=== PATIENT | male | born 1980 ===

== ENCOUNTER 2016-09-05 14:11 | Emergency (ER) | payer OTHER ==
[2016-09-05 14:18] VITALS: BP 134/77; PULSE 80; RESP 16; TEMP 98.9; O2SAT 100
[2016-09-05 14:19] VITALS: BMI 27.4
[2016-09-05] MEDS ORDERED: Sodium Chloride 0.9% 1,000 ML IV STA (14:27)
--- NOTE | 2016-09-05 14:35 | ED PDOC ---
HPI: Back Time Seen by Provider: 09/05/16 14:21 Chief Complaint (Nursing): Back Pain Chief Complaint (Provider): Back Pain History Per: Patient History/Exam Limitations: no limitations Onset/Duration Of Symptoms: Days (x3 days) Current Symptoms Are (Timing): Still Present Additional Complaint(s): 36 y/o male presents to the emergency department with a complaint of a right- sided back pain that radiates to right upper abdomen x3 days. He reports taking ibuprofen with mild relief of pain; last dose at 11 a.m. Denies nausea, vomiting, diarrhea or constipation. Patient has no history of similar symptoms. Patient denies any trauma or injury. PMD: [facility] Past Medical History Reviewed: Historical Data, Nursing Documentation, Vital Signs Vital Signs: Last Vital Signs Temp 98.9 F 09/05/16 14:17 Pulse 80 09/05/16 14:17 Resp 16 09/05/16 14:17 BP 134/77 09/05/16 14:17 Pulse Ox 100 09/05/16 14:17 - Medical History PMH: No Chronic Diseases - Surgical History Surgical History: No Surg Hx - Family History Family History: States: No Known Family Hx - Living Arrangements Living Arrangements: With Family - Social History Current smoker - smoking cessation education provided: No Alcohol: None Drugs: Denies - Home Medications Home Medications: Ambulatory Orders Medication Instructions Recorded Naproxen [Naprosyn] 500 mg PO BID #30 tab 12/26/12 Ibuprofen [Motrin] 600 mg PO Q6 PRN #15 tab 09/05/16 - Allergies Allergies/Adverse Reactions: Allergies Allergy/AdvReac Type Severity Reaction Status Date / Time No Known Allergies Allergy Verified 09/05/16 14:17 Review of Systems ROS Statement: Except As Marked, All Systems Reviewed And Found Negative Constitutional: Negative for: Fever Gastrointestinal: Positive for: Abdominal Pain. Negative for: Nausea, Vomiting , Constipation, Other (Pain after eating) Musculoskeletal: Positive for: Back Pain Physical Exam - Reviewed Nursing Documentation Reviewed: Yes Vital Signs Reviewed: Yes - Physical Exam Appears: Positive for: Non-toxic, No Acute Distress Head Exam: Positive for: ATRAUMATIC, NORMOCEPHALIC Skin: Positive for: Normal Color, Warm, Dry Neck: Positive for: Normal, Supple Cardiovascular/Chest: Positive for: Regular Rate, Rhythm. Negative for: Murmur Respiratory: Positive for: Normal Breath Sounds. Negative for: Accessory Muscle Use, Respiratory Distress Gastrointestinal/Abdominal: Positive for: Soft, Tenderness (Slight tenderness of the RUQ and epigastric region.). Negative for: Distended, Guarding, Rebound Back: Positive for: Other (Mild tenderness of the right parathoracic region, no midline tenderness) Extremity: Positive for: Normal ROM Neurologic/Psych: Positive for: Alert, Oriented - Laboratory Results Result Diagrams: 09/05/16 14:40 09/05/16 14:40 Urine dip results: Negative for: Leukocyte Esterase, Blood, Nitrate, Ketones, Glucose, Bilirubin, Protein - ECG Interpretation Of ECG: NSR 62 bpm, no acute finding, reviewed by PA and ED attending. O2 Sat by Pulse Oximetry: 100 (RA) Pulse Ox Interpretation: Normal - Other Rad Abd US X-Ray: Read By Radiologist X-Ray Interpretation: see below CXR X-Ray: Interpreted by Me, Viewed By Me X-Ray Interpretation: no acute finding CT abd and pelvis with IV contrast X-Ray: Read By Radiologist X-Ray Interpretation: see below Medical Decision Making Medical Decision Making: Time: 14:21 Initial plan: --COMP Metabolic Panel --CBC w/ differential --Abdomen Complete US Electrocardiogram Stat Lipase Stat ED Urine Dipstick EKG-ED (EDUNRTX) CBC w/ differential Chest Two Views (PA/LAT) (RAD) Sodium Chloride 1,000 ml IV 1,000 mls/hr --Revaluation Time: 15:53 Abdomen Ultrasound FINDINGS: LIVER: Measures 15.0 cm. Normal echogenicity of the liver parenchyma. Echogenic mass right lobe of liver, 2.1 x 1.6 x 2.5 cm. No prior ultrasound for comparison. This is not evident on prior noncontrast CT examination of 03/15/2011. Possible hemangioma but nonspecific. Recommend further evaluation with contrast-enhanced CT of the abdomen utilizing hemangioma protocol. GALLBLADDER: Two polyps, 3 mm and 4 mm. No evidence of cholelithiasis. No mural thickening or pericholecystic fluid. Negative sonographic Hicks sign. COMMON BILE DUCT: Measures 3 mm. No stones. No dilatation. PANCREAS: Limited. No mass or peripancreatic fluid appreciated. RIGHT KIDNEY: Measures 11.2cm. Normal echogenicity. No calculus, mass, or hydronephrosis. LEFT KIDNEY: Measures 12.1cm. Normal echogenicity. No calculus, mass, or hydronephrosis. SPLEEN: Normal in size and contour. No mass. AORTA: No aneurysmal dilatation. IVC: Unremarkable. OTHER FINDINGS: None. IMPRESSION : 2.5 cm ovoid echogenic mass in right lobe of liver. Possible hemangioma but nonspecific. Recommend further evaluation with contrast-enhanced CT of the abdomen utilizing hemangioma protocol. Small gallbladder polyps. No evidence of cholelithiasis or cholecystitis. No additional abnormality. Case was d/w Dr. Tapia, CT abd and pelvis with IV and oral contrast ordered as per US findings above. CT: IMPRESSION: Three enhancing hepatic masses. The largest mass in the posterior medial right hepatic lobe, likely corresponds to echogenic mass identified on ultrasound examination of this same date. Evaluation of these 3 hepatic masses with multiphasic contrast enhanced computed tomography is advised. This should utilize the hemangioma protocol. Incidentally noted is a right inguinal hernia containing only mesenteric fat. Above results were d/w Dr. Tapia. Patient will be referred to clinic for follow up. Call was placed to family practice resident who is unable to make appt to for patient in clinic as it is currently after hours. Patient states he applied for [facility] and will call in AM to make appt with clinic. Copies of labs and Ct report provided to patient. Rx given for mario Bazan Attestation: Documented by Phuong Alexander, acting as a scribe for Lottie Mack PA-C. Provider Scribe Attestation: All medical record entries made by the Scribe were at my direction and personally dictated by me. I have reviewed the chart and agree that the record accurately reflects my personal performance of the history, physical exam, medical decision making, and the department course for this patient. I have also personally directed, reviewed, and agree with the discharge instructions and disposition. Disposition - Clinical Impression Clinical Impression: Liver mass, Back pain, Abdominal pain - Patient ED Disposition Is Patient to be Admitted: No Counseled Patient/Family Regarding: Studies Performed, Diagnosis, Need For Followup, Rx Given - Disposition Referrals: [facility] [Outside] Disposition: Routine/Home Disposition Time: 18:22 Condition: STABLE Additional Instructions: Take rx meds as directed as needed for pain. Call clinic in the morning to arrange for follow up appointment. Prescriptions: Ibuprofen [Motrin] 600 mg PO Q6 PRN #15 tab PRN Reason: Pain, Moderate (4-7) Instructions: Abdominal Pain (ED), Back Pain (ED) Results - Lab Results Lab Results: 09/05/16 09/05/16 14:40 14:40 WBC 8.5 RBC 4.64 Hgb 14.0 Hct 42.8 MCV 92.2 MCH 30.1 MCHC 32.7 L RDW 13.0 Plt Count 188 MPV 10.2 Neut % (Auto) 59.0 Lymph % (Auto) 29.8 Granite % (Auto) 9.9 Eos % (Auto) 0.7 Baso % (Auto) 0.6 Neut # 5.0 Lymph # 2.5 Granite # 0.8 Eos # 0.1 Baso # 0.0 Sodium 140 Potassium 3.8 Chloride 100 Carbon Dioxide 28 Anion Gap 15 BUN 18 Creatinine 0.7 L Est GFR ( Amer) > 60 Est GFR (Non-Af Amer) > 60 Random Glucose 99 Calcium 9.3 Total Bilirubin 0.5 AST 20 ALT 27 Alkaline Phosphatase 82 Total Protein 8.1 Albumin 4.3 Globulin 3.9 Albumin/Globulin Ratio 1.1 Lipase 186
[2016-09-05 15:35] LABS: BASO % 0.6 % (0.0-2.0); EOS # 0.1 K/uL (0.0-0.7); EOS % 0.7 % (0.0-4.0); HEMATOCRIT 42.8 % (35.0-51.0); LYMPH # 2.5 K/uL (1.0-4.3); LYMPH % 29.8 % (20.0-40.0); MEAN CELL VOLUME 92.2 fl (80.0-94.0); MEAN CORPUSCULAR HEMOGLOBIN 30.1 pg (27.0-31.0); MEAN CORPUSCULAR HGB CONC 32.7 g/dL (33.0-37.0); MEAN PLATELET VOLUME 10.2 fl (7.2-11.7); MONO # 0.8 K/uL (0.0-0.8); MONO % 9.9 % (0.0-10.0); NRBC % 0.1 % (0.0-0.0); WHITE BLOOD COUNT 8.5 K/uL (4.8-10.8)
[2016-09-05 15:39] LABS: ALB/GLOB RATIO 1.1 (1.0-2.1); ALKALINE PHOSPHATASE 82 U/L (38-126); ALT/SGPT 27 U/L (21-72); AST/SGOT 20 U/L (17-59); BILIRUBIN,TOTAL 0.5 mg/dl (0.2-1.3); BLOOD UREA NITROGEN 18 mg/dl (9-20); CALCIUM 9.3 mg/dL (8.4-10.2); CARBON DIOXIDE 28 mmol/L (22-30); CHLORIDE 100 mmol/L (98-107); GFR AFRICAN-AMERICAN > 60; GLUCOSE,RANDOM 99 mg/dL (75-110); LIPASE 186 U/L (23-300); POTASSIUM 3.8 MMOL/L (3.6-5.0); SODIUM 140 mmol/l (132-148); TOTAL PROTEIN 8.1 G/DL (6.3-8.2)
--- NOTE | 2016-09-05 15:55 | US ---
HISTORY: epigastric, RUQ abd pain COMPARISON: None. TECHNIQUE: Sonographic evaluation of the abdomen. FINDINGS: LIVER: Measures 15.0 cm. Normal echogenicity of the liver parenchyma. Echogenic mass right lobe of liver, 2.1 x 1.6 x 2.5 cm. No prior ultrasound for comparison. This is not evident on prior noncontrast CT examination of 03/15/2011. Possible hemangioma but nonspecific. Recommend further evaluation with contrast-enhanced CT of the abdomen utilizing hemangioma protocol. GALLBLADDER: Two polyps, 3 mm and 4 mm. No evidence of cholelithiasis. No mural thickening or pericholecystic fluid. Negative sonographic Hicks sign. COMMON BILE DUCT: Measures 3 mm. No stones. No dilatation. PANCREAS: Limited. No mass or peripancreatic fluid appreciated. RIGHT KIDNEY: Measures 11.2cm. Normal echogenicity. No calculus, mass, or hydronephrosis. LEFT KIDNEY: Measures 12.1cm. Normal echogenicity. No calculus, mass, or hydronephrosis. SPLEEN: Normal in size and contour. No mass. AORTA: No aneurysmal dilatation. IVC: Unremarkable. OTHER FINDINGS: None. IMPRESSION: 2.5 cm ovoid echogenic mass in right lobe of liver. Possible hemangioma but nonspecific. Recommend further evaluation with contrast-enhanced CT of the abdomen utilizing hemangioma protocol. Small gallbladder polyps. No evidence of cholelithiasis or cholecystitis. No additional abnormality.
--- NOTE | 2016-09-05 16:14 | RAD ---
HISTORY: pain COMPARISON: No prior. TECHNIQUE: Chest PA and lateral FINDINGS: LUNGS: No active pulmonary disease. PLEURA: No significant pleural effusion identified. No pneumothorax apparent. CARDIOVASCULAR: Normal. OSSEOUS STRUCTURES: No significant abnormalities. VISUALIZED UPPER ABDOMEN: Normal. OTHER FINDINGS: None. IMPRESSION: No active disease.
[2016-09-05] MEDS ORDERED: Sodium Chloride 0.9% 50 ML IV ONE (16:36)
[2016-09-05] MEDS ORDERED: Iohexol 300 100 ML IJ ONE (16:36)
--- NOTE | 2016-09-05 17:31 | CT ---
PROCEDURE: CT Abdomen and Pelvis with contrast HISTORY: assess liver mass seen on US COMPARISON: 03/15/2011 TECHNIQUE: Contrast dose: 95 mL Omnipaque 300 Radiation dose: Total exam DLP = 939.56 mGy-cm. This CT exam was performed using one or more of the following dose reduction techniques: Automated exposure control, adjustment of the mA and/or kV according to patient size, and/or use of iterative reconstruction technique. FINDINGS: LOWER THORAX: Minimal dependent atelectasis posterior aspect both lower lobes. LIVER: Normal size, contour and attenuation. There are 3 enhancing masses identified. In the dome of the right hepatic lobe there is a 9 mm enhancing mass, mildly heterogeneous. In the superior right hepatic lobe, posterior aspect there is a 10 mm heterogeneous enhancing mass. In the medial posterior right hepatic lobe adjacent to the inferior vena cava, there is a 2.3 cm mass which shows some nodular peripheral enhancement and most likely represents a hemangioma although this cannot be confirmed merely on the basis of this single phase examination. No other hepatic mass is identified. There is no biliary ductal dilatation. GALLBLADDER AND BILE DUCTS: Unremarkable. PANCREAS: Unremarkable. No gross lesion or ductal dilatation. SPLEEN: Unremarkable. ADRENALS: Unremarkable. No mass. KIDNEYS AND URETERS: Unremarkable. No hydronephrosis. No solid mass. VASCULATURE: Unremarkable. No aortic aneurysm. BOWEL: Unremarkable. No obstruction. No gross mural thickening. APPENDIX: Normal appendix. PERITONEUM: No ascites. Right inguinal hernia containing only mesenteric fat. LYMPH NODES: Unremarkable. No enlarged lymph nodes. BLADDER: Unremarkable. REPRODUCTIVE: Normal prostate BONES: No acute fracture. OTHER FINDINGS: None. IMPRESSION: Three enhancing hepatic masses. The largest mass in the posterior medial right hepatic lobe, likely corresponds to echogenic mass identified on ultrasound examination of this same date. Evaluation of these 3 hepatic masses with multiphasic contrast enhanced computed tomography is advised. This should utilize the hemangioma protocol. Incidentally noted is a right inguinal hernia containing only mesenteric fat.
--- NOTE | 2016-09-06 08:00 | CARD ---
APPROVED REPORT EKG Measurement Heart [id number] <Conclusion> Normal sinus rhythm Normal ECG
== END 2016-09-05 18:45 | disposition home or self-care (01) ==
LOC: H.ER 14:11
DX: R10.9 Unspecified abdominal pain (principal); M54.9 Dorsalgia, unspecified; R07.9 Chest pain, unspecified

== ENCOUNTER 2017-07-24 11:22 | Day surgery (SDC) | payer SELFPAY ==
[2017-07-05 13:41] VITALS: BMI 27.3
[2017-07-24] MEDS ORDERED: Lactated Ringer's 1,000 ML IV ONE (12:05)
[2017-07-24 12:08] LABS: HEMOGLOBIN 14.5 g/dL (12.0-18.0); MEAN CELL VOLUME 91.5 fl (80.0-94.0); MEAN CORPUSCULAR HEMOGLOBIN 30.2 pg (27.0-31.0); MEAN CORPUSCULAR HGB CONC 33.1 g/dL (33.0-37.0); RBC 4.8 Mil/uL (4.40-5.90); RED CELL DISTRIBUTION WIDTH 13.4 % (11.5-14.5); WHITE BLOOD COUNT 5.5 K/uL (4.8-10.8)
[2017-07-24] MEDS ORDERED: Propofol 10 mg/ml Inj (20 ML) ONE ×2 (12:54→14:25)
[2017-07-24] MEDS ORDERED: Midazolam 2 MG/2 ML VIAL ONE (12:55)
[2017-07-24] MEDS ORDERED: ePHEDrine 50 mg/ml Inj ONE (12:55)
[2017-07-24] MEDS ORDERED: Succinylcholine 200 mg/10 ml Inj IV ONE (12:55)
[2017-07-24] MEDS ORDERED: Lidocaine 4% (Laryng-O-Jet) Kit MM ONE (12:56)
[2017-07-24] MEDS ORDERED: Dexamethasone 4 mg/1 ml ONE (13:36)
[2017-07-24] MEDS ORDERED: Sodium Chloride 0.9% 1,000 ML IV ONE (13:37)
[2017-07-24] MEDS ORDERED: Sodium Chloride 0.9% 1,000 ML IV SCH (14:45)
--- NOTE | 2017-07-24 14:52 | CP.SDSHP ---
Same Day Surgery H & P - History Proposed Procedure: Right inguinal hernia repair with mesh Pre-Op Diagnosis: Right inguinal hernia H&P paper in chart - Allergies Allergies: Allergies No Known Allergies Allergy (Verified 07/24/17 12:23) - Physical Exam Vital Signs: Vital Signs 07/24/17 07/24/17 07/24/17 12:00 12:30 14:40 Temperature 97.8 F 97.4 F L Pulse Rate 61 61 75 Respiratory 18 18 Rate Blood Pressure 127/74 124/77 O2 Sat by Pulse 98 100 Oximetry Short Stay Discharge - Short Stay Discharge Admitting Diagnosis/Reason for Visit: K40.90 Disposition: HOME/ ROUTINE Referrals: FAMILY PROVIDER,NO [Primary Care Provider] - Follow-up: Followup in 10-14 days in clinic. No heavy lifting 4 weeks, you may shower tomorrow, no soaking or bathing for 2 weeks. If you develop fevers chills, wound drainage please call your primary care provider or go to the Emergency department.
--- NOTE | 2017-07-24 14:54 | PCM.SURG1 ---
Surgeon's Initial Post Op Note - Surgeon's Notes Surgeon: Dr. Mccabe Green Hide Inspector: Dr. Brooks PGY2 Type of Anesthesia: General Endo Pre-Operative Diagnosis: Right Inguinal hernia Operative Findings: See operative dictation Post-Operative Diagnosis: Right direct inguinal hernia Operation Performed: Right inguinal hernia repair with mesh Specimen/Specimens Removed: None Estimated Blood Loss: EBL {In ML}: 5 Blood Products Given: N/A Drains Used: No Drains Post-Op Condition: Good Date of Surgery/Procedure: 07/24/17 Time of Surgery/Procedure: 14:54
[2017-07-24] MEDS: HYDROmorphone 0.5 mg/0.5 ml ISec IVP PRN ×2 (15:10→15:20)
[2017-07-24] MEDS ORDERED: Oxycodone/Acetaminophen 5/325 mg Tab PO PRN (15:12)
[2017-07-24 16:18] VITALS: RESP 18
[2017-07-24 16:26] VITALS: TEMP 98.5
[2017-07-24 16:57] VITALS: BP 115/72; PULSE 69; O2SAT 96
--- NOTE | 2017-07-26 16:10 | OP ---
PROCEDURE DATE: 07/24/2017 SURGEON: Robbi Mccabe MD WARE DRESSER: Dr Brooks TYPE OF ANESTHESIA: General. PREOPERATIVE DIAGNOSIS: Right inguinal hernia. POSTOPERATIVE DIAGNOSIS: Right inguinal hernia. PROCEDURE: Right inguinal hernia repair with mesh. DESCRIPTION OF OPERATION: With the patient in the supine position under adequate general anesthesia, the right groin was prepped and draped in the usual sterile manner. A transverse incision was made over the right upper groin crease taken down through the subcutaneous tissue. The external oblique layer was identified and a fatty mass was noted exiting from the area of the external inguinal ring. The external oblique was developed and then opened from the external ring to the internal inguinal ring and the spermatic cord was identified and dissected at the level of the pubic tubercle and elevated over a Christiano drain. The herniation was noted to be just medial to the internal ring with a large mass of fatty tissue which was freed from the spermatic cord and reducible below the level of the of the transversalis fascia. The spermatic cord itself was explored and no indirect hernia sac was identified. There appeared to be a tear to the inguinal floor with a flap of muscle visible adjacent to the lower edge of what should be the inguinal floor and then a separation between that and the remainder of the transversalis layer beneath the external oblique. A size large ProLoop hernia plug was positioned beneath the level of the transversalis and sutured using a U shaped stitch beneath the transversalis superiorly and sutured to the remnant of the inguinal ligament of inferiorly to maintain reduction of the inguinal floor. In addition, the transversalis was sutured together close to the pubic tubercle and the flat portion of the mesh was then positioned over the flap of muscle and positioned beneath the spermatic cord and sutured superiorly to the fascial portion of the transversalis using interrupted sutures of 2-0 Prolene and inferiorly to the shelving edge of the inguinal ligament with an additional suture to approximate the tail lateral to the spermatic cord. The operative site was examined for hemostasis and the external oblique was closed with running suture of 0 Vicryl. Subcutaneous tissues were approximated with 3-0 Vicryl interrupted sutures and skin was closed with billy. Dry sterile dressing was applied. The patient tolerated the procedure well and transferred to recovery room in stable condition. Estimated blood loss for the procedure was 5 mL. Robbi Mccabe MD SHAJI
== END 2017-07-24 18:10 | disposition home or self-care (01) ==
LOC: H.OPSURG 11:22
PROVIDERS: ATTEND Specialist
DX: K40.90 Unilateral inguinal hernia, without obstruction or gangrene, not specified as recurrent (principal)
CPT/HCPCS: 36415; 49505; 85027; C1781; J0330; J0690; J1100; J1170; J2001; J2250; J2405; J2704; J2765; J3010; J7030; J7040; J7120

== ENCOUNTER 2017-08-26 16:51 | Emergency (ER) | payer SELFPAY ==
[2017-08-26 16:51] VITALS: BMI 27.3
[2017-08-26 17:00] VITALS: BP 112/73; PULSE 88; RESP 20; TEMP 99.4; O2SAT 98
--- NOTE | 2017-08-26 17:12 | ED PDOC ---
HPI: Influenza Time Seen by Provider: 08/26/17 17:01 Chief Complaint: Cough, Cold, Congestion Chief Complaint (Provider): Cough, Cold, Congestion History Per: Patient Exam Limitations: no limitations Onset/Duration Of Symptoms: Days (x2 days) Symptoms include: fever, sore throat, cough, other (chills) Additional complaint(s):: Patient reports 101 fever since last with cough, chills and sore throat. Otherwise: (-) SOB, (-) chest pain, (-) N/V/D, (-) abdominal pain, (-) flank pain, (-) urinary symptoms, (-) recent travel, (-) sick contacts. Past Medical History Reviewed: Historical Data, Nursing Documentation, Vital Signs Vital Signs: Last Vital Signs Temp 99.4 F 08/26/17 16:58 Pulse 88 08/26/17 16:58 Resp 20 08/26/17 16:58 BP 112/73 08/26/17 16:58 Pulse Ox 98 08/26/17 16:58 - Medical History PMH: Denies: Chronic Kidney Disease Other PMH: cyst liver - Surgical History Surgical History: No Surg Hx - Family History Family History: States: Unknown Family Hx - Social History Current smoker - smoking cessation education provided: No (Never Smoked) Alcohol: None Drugs: Denies - Immunization History Hx Tetanus Toxoid Vaccination: No Hx Influenza Vaccination: No Hx Pneumococcal Vaccination: No - Home Medications Home Medications: Ambulatory Orders Medication Instructions Recorded Multivitamin [Multiple Vitamins] 1 tab PO DAILY 07/05/17 Ibuprofen [Motrin] 600 mg PO TID 07/24/17 oxyCODONE/Acetaminophen [Percocet 1 tab PO Q4 07/24/17 5/325 mg Tab] Ibuprofen [Motrin Tab] 600 mg PO QID PRN #20 tab 08/26/17 Oseltamivir Phosphate [Tamiflu] 75 mg PO BID #10 capsule 08/26/17 - Allergies Allergies/Adverse Reactions: Allergies Allergy/AdvReac Type Severity Reaction Status Date / Time No Known Allergies Allergy Verified 08/26/17 17:00 Review of Systems ROS Statement: Except As Marked, All Systems Reviewed And Found Negative (As per HPI, otherwise negative) Physical Exam - Reviewed Nursing Documentation Reviewed: Yes Vital Signs Reviewed: Yes - Physical Exam Comments: GENERAL APPEARANCE: Patient is awake, alert, oriented x 3, in no acute distress. SKIN: Warm, dry; (-) cyanosis, (-) rash. EYES: (-) conjunctival pallor, (-) scleral icterus, (-) conjunctival hemorrhage. ENMT: Mucous membranes moist. TMs: (-) erythema. Airway patent: (-) stridor. Pharynx: (-) erythema, (-) exudate. NECK: (-) tenderness, (-) stiffness, (-) meningismus, (-) lymphadenopathy. CHEST AND RESPIRATORY: (-) accessory muscle use. Lungs: (-) rales, (-) rhonchi, (-) wheezes, (-) rub; breath sounds equal bilaterally. HEART AND CARDIOVASCULAR: (-) irregularity; (-) murmur, (-) gallop, (-) rub. ABDOMEN AND GI: Soft; (-) tenderness, (-) guarding; (-) organomegaly; (-) mass ; (-) CVA tenderness. EXTREMITIES: (-) deformity; (-) cellulitis, (-) lymphangitis; (-) edema. NEURO AND PSYCH: Mental status as above; (-) focal findings. Medical Decision Making Medical Decision Making: Time: 17:00 Impression : likely viral illness, consider flu Advised to follow up with the clinic in 1-2 days without fail. Advised to take medication as prescribed. Advised bed rest and to drink plenty of fluids. Return to the emergency room at any time for any new or worsening symptoms. Patient states jennifer fully agrees with and understands discharge instructions. States that he agrees with the plan and disposition. Verbalized and repeated discharge instructions and plan. I have given the patient opportunity to ask any additional questions. Scribe Attestation: Documented by Garett Catherine acting as a scribe for PA. CONCHA Salmeron PA-C Scribe Attestation: All medical record entries made by the Scribe were at my direction and personally dictated by me. I have reviewed the chart and agree that the record accurately reflects my personal performance of the history, physical exam, medical decision making, and the department course for this patient. I have also personally directed, reviewed, and agree with the discharge instructions and disposition. - ECG O2 Sat by Pulse Oximetry: 98 (RA) Pulse Ox Interpretation: Normal Disposition - Clinical Impression Clinical Impression: Cough, Fever - Patient ED Disposition Is Patient to be Admitted: No Counseled Patient/Family Regarding: Diagnosis, Need For Followup, Rx Given - Disposition Disposition: Routine/Home Disposition Time: 17:00 Condition: STABLE Additional Instructions: Thank you for letting us take care of you today. You were treated for her, cough , likely influenza. The emergency medical care you received today was directed at your acute symptoms. If you were prescribed any medication, please fill it and take as directed. It may take several days for your symptoms to resolve. Return to the Emergency Department if your symptoms worsen, do not improve, or if you have any other problems. Please contact your doctor in 2 days for re-evaluation and follow up. Bring any paperwork you were given at discharge with you along with any medications you are taking to your follow up visit. Our treatment cannot replace ongoing medical care by a primary care provider (PCP) outside of the emergency department. Thank you for allowing the [facility] team to be part of your care today. Prescriptions: Ibuprofen [Motrin Tab] 600 mg PO QID PRN #20 tab PRN Reason: Fever >100.4 F Oseltamivir Phosphate [Tamiflu] 75 mg PO BID #10 capsule Instructions: Flu Forms: [employer] [facility]), [facility] ED School/Work Excuse
== END 2017-08-26 17:37 | disposition home or self-care (01) ==
LOC: H.ER 16:51
DX: R50.9 Fever, unspecified (principal); R05 Cough